=== PATIENT | male | born 1930 | race American Indian/Alaskan Native ===

== ENCOUNTER 2018-08-15 16:20 | Observation (INO) ==
[2018-08-15] MEDS ORDERED: LACTATED RINGERS 1,000 ML IV ONE (16:40)
--- NOTE | 2018-08-15 16:43 | Emergency Department Note ---
Weakness HPI - General Chief complaint: Weakness Stated complaint: Weakness, diarrhea, decreased appetite Time Seen by Provider: 08/15/18 16:37 Source: patient Mode of arrival: wheelchair Limitations: no limitations - History of Present Illness HPI Narrative: This patient describes generalized weakness in both legs with pain in both legs the right greater than the left. He describes a knee injury that he got in the service. He lives in a local hotel by himself and has been falling quite a bit recently. He was brought in by some case work aide from the [place]. He denies any chest pain abdominal pain nausea vomiting. Denies back pain. - Related Data Home Medications Medication Instructions Recorded Confirmed Aspirin [Jessica Chewable Aspirin] 81 mg PO DAILY 08/15/18 08/15/18 Aspirin/Acetaminophen/Caffeine 1 - 2 tablet PO BIDP PRN 08/15/18 08/15/18 [Excedrin Migraine Caplet] Atorvastatin [Lipitor] 20 mg PO HS 08/15/18 08/15/18 Bumetanide [Bumex] 1 mg PO BID 08/15/18 08/15/18 Chlorpheniramine Maleate [Allergy] 4 mg PO DAILY 08/15/18 08/15/18 Ferrous Sulfate [Iron] 325 mg PO DAILY 08/15/18 08/15/18 Lisinopril [Zestril] 20 mg PO DAILY 08/15/18 08/15/18 Metoprolol Tartrate [Lopressor] 12.5 mg PO BID 08/15/18 08/15/18 Omeprazole [PriLOSEC] 20 mg PO DAILY 08/15/18 08/15/18 Spironolactone [Aldactone] 12.5 mg PO DAILY 08/15/18 08/15/18 Warfarin Sodium [Jantoven] 3 mg PO DAILY 08/15/18 08/15/18 metFORMIN HCL [Metformin HCl] 500 mg PO BID 08/15/18 08/15/18 Allergies Allergy/AdvReac Type Severity Reaction Status Date / Time hydrocortisone Allergy Unknown Unknown Verified 08/15/18 16:22 [From Cortizone-10] Review of Systems All systems ED: reviewed and negative except as stated. Past Medical History - Past Medical History Medical history: Reports: asthma, atrial fibrillation, CVA, DM, hypertension, migraine, other (DVT) - Social History smoking status: Former smoker Physical Exam Limitations: no limitations General appearance: alert Head: atraumatic Eye: Present: normal appearance ENT: normal exam Neck: Present: normal inspection Chest: Present: normal inspection Respiratory: Present: normal lung sounds bilaterally Cardiovascular: Present: regular rate, normal rhythm, normal heart sounds Abdominal: Present: soft. Absent: distention, tenderness Back: Absent: straight leg raise (R), straight leg raise (L) Neurological: Present: alert Motor strength - LUE: 5/5 Motor strength - RUE: 5/5 Motor strength - LLE: 5/5 Motor strength - RLE: 5/5 Psychiatric: Present: normal affect Skin: Present: warm, dry, intact Course Vital Signs Temperature 98.0 F 08/15/18 16:22 Pulse Rate 91 H 08/15/18 16:22 Respiratory Rate 16 08/15/18 16:22 Blood Pressure 158/100 08/15/18 16:22 Pulse Oximetry (%) 100 08/15/18 16:22 Temperature 98.0 F 08/15/18 16:22 Pulse Rate 93 H 08/15/18 19:58 Respiratory Rate 27 H 08/15/18 19:58 Blood Pressure 140/80 08/15/18 19:46 Pulse Oximetry (%) 94 08/15/18 19:58 Weakness - MDM Narrative Medical decision making narrative: Patient's INR was 6.2. His EKG showed atrial fibrillation with a controlled rate. Head CT showed a lot of atrophy. Chest x-ray showed heart failure and his BNP was 3000. This patient will be admitted to the hospital for multiple falls weakness heart failure and eventual placement in an assisted living center. - Lab Data Lab results reviewed: Yes I reviewed the patient's lab results. Result diagrams: 08/15/18 16:28 08/15/18 16:28 Lab Results 08/15/18 08/15/18 08/15/18 Range/Units 16:10 16:10 16:28 WBC 8.6 (4.5-11.0) K/mcL RBC 3.52 L (4.50-5.90) M/mcL Hgb 11.0 L (13.5-16.5) g/dL Hct 33.4 L (41.0-55.0) % MCV 95.1 (80.0-100.0) fL MCH 31.3 (26.0-34.0) pg MCHC 32.9 (31.0-36.0) g/dL RDW 15.8 H (11.5-14.5) % Plt Count 235 (140-440) K/mcL MPV 8.6 (7.4-10.4) fL Gran % 71.0 (38.0-78.0) % Lymph % (Auto) 15.9 (15.5-49.0) % [place] % (Auto) 8.5 (1.0-12.0) % Eos % (Auto) 3.3 (0.0-7.0) % Baso % (Auto) 1.3 (0.0-2.0) % Gran # 6.1 (1.8-8.0) K/mcL Lymph # (Auto) 1.4 L (1.5-4.8) K/mcL [place] # (Auto) 0.7 (0.1-0.9) K/mcL Eos # (Auto) 0.3 (0.0-0.7) K/mcL Baso # (Auto) 0.1 (0.0-0.3) K/mcL PT 55.9 H (11.9-14.5) sec INR 6.2 H* (0.9-1.1) Sodium (133-145) mmol/L Potassium (3.3-5.1) mmol/L Chloride (96-108) mmol/L Carbon Dioxide (22-30) mmol/L Anion Gap (8-16) BUN (8-23) mg/dl Creatinine (0.7-1.2) mg/dl GFR Calculation Glucose (70-105) mg/dL Calcium (8.6-10.4) mg/dl Total Bilirubin (0.0-1.0) mg/dL AST (0-37) U/l ALT (0-40) U/l Alkaline Phosphatase (39-117) U/L Troponin T (0-0.03) ng/ml NT-Pro-B Natriuret Pep 6673.0 H (0-450) pg/ml Total Protein (5.9-8.4) gm/dL Albumin (3.2-5.2) gm/dL Globulin (2.2-3.7) gm/dL Albumin/Globulin Ratio (1.0-2.3) Urine Color Urine Appearance Urine pH (5.0-9.0) Ur Specific [place] (1.000-1.035) Urine Protein (NEG) mg/dL Urine Glucose (UA) (NEG) mg/dL Urine Ketones (NEG) mg/dL Urine Occult Blood (<0.03) mg/dL Urine Nitrate (NEG) Urine Bilirubin (NEG) mg/dL Urine Urobilinogen (NEG) mg/dL Ur Leukocyte Esterase (NEG) /uL Urine RBC (0-1) /hpf Urine WBC (0-4) /hpf Ur Squamous Epith Cells (0-4) /hpf Urine Bacteria (0) /hpf Hyaline Casts (0-2) /lpf Urine Mucus (0) /hpf Ur Culture Indicated? 08/15/18 08/15/18 08/15/18 Range/Units 16:28 16:40 16:42 WBC (4.5-11.0) K/mcL RBC (4.50-5.90) M/mcL Hgb (13.5-16.5) g/dL Hct (41.0-55.0) % MCV (80.0-100.0) fL MCH (26.0-34.0) pg MCHC (31.0-36.0) g/dL RDW (11.5-14.5) % Plt Count (140-440) K/mcL MPV (7.4-10.4) fL Gran % (38.0-78.0) % Lymph % (Auto) (15.5-49.0) % [place] % (Auto) (1.0-12.0) % Eos % (Auto) (0.0-7.0) % Baso % (Auto) (0.0-2.0) % Gran # (1.8-8.0) K/mcL Lymph # (Auto) (1.5-4.8) K/mcL [place] # (Auto) (0.1-0.9) K/mcL Eos # (Auto) (0.0-0.7) K/mcL Baso # (Auto) (0.0-0.3) K/mcL PT (11.9-14.5) sec INR (0.9-1.1) Sodium 139 (133-145) mmol/L Potassium 4.6 (3.3-5.1) mmol/L Chloride 102 (96-108) mmol/L Carbon Dioxide 22 (22-30) mmol/L Anion Gap 15.0 (8-16) BUN 14 (8-23) mg/dl Creatinine 1.1 (0.7-1.2) mg/dl GFR Calculation 60 Glucose 83 (70-105) mg/dL Calcium 8.4 L (8.6-10.4) mg/dl Total Bilirubin 0.6 (0.0-1.0) mg/dL AST 22 (0-37) U/l ALT 8 (0-40) U/l Alkaline Phosphatase 138 H (39-117) U/L Troponin T 0.02 (0-0.03) ng/ml NT-Pro-B Natriuret Pep (0-450) pg/ml Total Protein 6.3 (5.9-8.4) gm/dL Albumin 3.6 (3.2-5.2) gm/dL Globulin 2.7 (2.2-3.7) gm/dL Albumin/Globulin Ratio 1.3 (1.0-2.3) Urine Color Yellow Urine Appearance Clear Urine pH 5.0 (5.0-9.0) Ur Specific [place] 1.018 (1.000-1.035) Urine Protein Neg (NEG) mg/dL Urine Glucose (UA) Negative (NEG) mg/dL Urine Ketones Neg (NEG) mg/dL Urine Occult Blood Neg (<0.03) mg/dL Urine Nitrate Neg (NEG) Urine Bilirubin Neg (NEG) mg/dL Urine Urobilinogen Neg (NEG) mg/dL Ur Leukocyte Esterase Neg (NEG) /uL Urine RBC 2 H (0-1) /hpf Urine WBC 1 (0-4) /hpf Ur Squamous Epith Cells < 1 (0-4) /hpf Urine Bacteria 0 (0) /hpf Hyaline Casts 14 H (0-2) /lpf Urine Mucus Few (0) /hpf Ur Culture Indicated? No - Radiology Data Radiology results reviewed: Yes I reviewed the patient's radiology results. Disposition Pt seen by REHABILITATION CLERK/PA only: No Clinical Impression: Congestive heart failure, Atrial fibrillation, Generalized weakness Disposition: Xfer As Outpt/Obs ([facility]) Condition: Good Referrals: Ramiro Astorga MD [Primary Care Provider] - Time of Disposition: 20:04
[2018-08-15 17:19] LABS: Basophils # (Auto) 0.1 K/mcL (0.0-0.3); Basophils % (Auto) 1.3 % (0.0-2.0); Eosinophils # (Auto) 0.3 K/mcL (0.0-0.7); Eosinophils % (Auto) 3.3 % (0.0-7.0); Lymphocytes # (Auto) 1.4 K/mcL (1.5-4.8); Lymphocytes % (Auto) 15.9 % (15.5-49.0); Mean Cell Volume 95.1 fL (80.0-100.0); Mean Corpuscular HGB Conc 32.9 g/dL (31.0-36.0); Mean Corpuscular Hemoglobin 31.3 pg (26.0-34.0); Monocytes # (Auto) 0.7 K/mcL (0.1-0.9); Monocytes % (Auto) 8.5 % (1.0-12.0); Platelet Count 235 K/mcL (140-440); RBC 3.52 M/mcL (4.50-5.90); Red Cell Distribution Width 15.8 % (11.5-14.5)
[2018-08-15 17:26] LABS: Appearance,Urine CLEAR; Bacteria,Urine 0 /hpf (0); Bilirubin,Urine NEG (NEG); Color,Urine YELLOW; Glucose,Urine (UA) NEGATIVE (NEG); Leukocyte Esterase,Urine NEG /uL (NEG); Mucus,Urine FEW /hpf (0); Protein,Urine NEG (NEG); Specific Gravity,Urine 1.018 (1.000-1.035); Urine Blood NEG mg/dL (<0.03); Urine Hyaline Cast 14 /lpf (0-2); Urine RBC 2 /hpf (0-1); Urine Squamous Epithelial Cell < 1 /hpf (0-4); Urine WBC 1 /hpf (0-4); Urobilinogen,Urine NEG (NEG)
[2018-08-15 17:34] LABS: ALT/SGPT 8 U/l (0-40); Albumin 3.6 gm/dL (3.2-5.2); Albumin/Globulin Ratio 1.3 (1.0-2.3); Alkaline Phosphatase 138 U/L (39-117); Blood Urea Nitrogen 14 mg/dl (8-23)
--- NOTE | 2018-08-15 17:42 | XRay Report ---
INDICATION: Weakness TECHNIQUE: PA and lateral upright chest x-ray COMPARISON: Previous chest x-ray dated 06/05/2018 FINDINGS: There is cardiomegaly, unchanged. There are bilateral infiltrates consistent with interstitial pulmonary edema. No focal consolidation. Appearance is consistent with congestive heart failure. Clinical correlation and follow-up radiographs recommended. No significant pleural effusion Harper and mediastinum are negative Overall appearance is similar to previous examination. IMPRESSION: 1. Cardiomegaly and probable interstitial pulmonary edema. 2. Appearance is consistent with congestive heart failure. 3. No definite interval change since 05/27/2019. Findings may be persistent or recurrent Interpreted and Authenticated by: James Rodriguez 08/15/18
--- NOTE | 2018-08-15 19:44 | Cat Scan Report ---
CLINICAL INFORMATION: Head injury. Patient is on Coumadin. COMPARISON: None. TECHNIQUE: Axial noncontrast-enhanced images through the brain. FINDINGS: No acute intracranial hemorrhage. No subdural hematoma. No epidural hematoma. No subarachnoid hemorrhage. No intra-axial hematoma. Severe cerebral atrophy with prominent superficial subarachnoid spaces and enlarged ventricles. There is extensive white matter abnormality. 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 No acute abnormality. No localized mass effect. No midline shift. There is white matter abnormality within the adan consistent with small vessel ischemic change. No brainstem or cerebellar hemorrhage. Basilar cisterns are negative. Middle cerebral artery sign. No calvarial fracture. Temporal bones are negative. No temporal bone fracture. Facial bones are not completely imaged. No nasal bone fracture. Orbits are negative. IMPRESSION: 1. No acute intracranial hemorrhage. 2. Severe cerebral atrophy and white matter abnormality. Left parietal encephalomalacia The exam was performed using radiation dose optimization techniques including, but not limited to, automated exposure control, adjustment of the mA and/or kV according to patient size and use of iterative reconstruction technique. Interpreted and Authenticated by: James Rodriguez 08/15/18
--- NOTE | 2018-08-15 21:09 | Internal Med History&Physical ---
Medical - H&P: HPI Patient information: Note initiated : 08/15/18 at 9:00 pm Service Date, if different from initiated Date: [] Patient: Rl Tobias 87 y/o M admitted on for Weakness, diarrhea, decreased appetite. Chief Complaint: weakness, pain, failure to thrive History of present illness: Mr. Tobias is a 87 year old M type 2 diabetes, hypertension, congestive heart failure, atrial fibrillation was brought to the emergency department by [facility] caseworkers due to the patient's declining function. History is obtained in speaking with the patient as well as with caseworkers. The patient has been living in a motel in [facility]. [facility], about 4 months ago was enrolled in a [place] housing program. They have been attempting to find placement for him. During this time he has had decreased appetite, progressive falls. He became weak to the point, that is caseworkers brought him to the emergency department today. Patient tells me that he is here because of pain, pain in the hips and the back and the legs, especially in his right leg. 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 No shooting pains from the back down into the leg. He's been falling more frequently, and states over the last few years he has lost his balance. 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 He has decreased appetite, he eats without pain or abdominal upset, but does not feel like eating much. Is caseworkers have noted complaints of diarrhea, patient states his stools are watery, is not sure how many stools he has a day. He also describes dark and black stools at times (he is on iron supplementation). He denies any kamilla rectal bleeding. No nausea or vomiting, no hematemesis. In the emergency department, evaluation was notable for an elevated BNP in the 6600 range, some evidence of heart failure on chest radiograph, and a critically elevated INR at 6.2 (he takes warfarin for stroke prophylaxis from A. fib). No GI bleeding as noted above. No hematuria. He does get up frequently to urinate in the night. He states he does have a cough, brings up brownish sputum and occasional blackish but no hemoptysis. He occasionally feels wheezing. He has had no pleuritic chest pains. Patient describes decreased appetite, denies any abdominal pain. He says he has loose stools, also brown stools. It sounds as if he is describing having to use laxatives to overcome constipation, unclear if he is currently using any. He is also complaining of headache, takes Excedrin Migraine for headaches. Complains of rhinorrhea when he is eating and chronic sinus problems. Also occasionally has lower extremity edema. Denies any orthopnea or PND. He is chronically on Bumex, spironolactone, lisinopril and metoprolol. Patient is being hospitalized to manage his critical quite a lot with the in the setting of recurrent falls and high risk for hemorrhage, including intracerebral hemorrhage if he has further falls while living alone. All systems: reviewed and no additional remarkable complaints except as stated Medical - H&P: PMH Medical history: Atrial fibrillation Type 2 diabetes mellitus COPD Hypertension Coronary artery disease History of congestive heart failure CVA in 2011 History of peptic ulcer disease Chronic post-traumatic headache History of mastoiditis on the right, status post surgery Surgical history: History of right mastoid surgery History of knee surgery History of cervical spinal surgery History of lumbar surgery History of cataract surgery Pertinent family history: Patient cannot recall family history Social history: Patient was incarcerated for 10 years, released about 5 months ago. Has been living in short-term living arrangements, most recently a motel in [facility]. He's being followed by [facility] case management, attempting to find permanent placement. He has no family. Patient does not smoke. He drinks 3-4 drinks a day with a mix of white wine and Sprite. Currently [facility] is willing to accept the patient, however payor arrangements need to be made. Medical - H&P: Meds Home Medications Medication Instructions Recorded Confirmed Type Aspirin [Jessica Chewable Aspirin] 81 mg PO DAILY 08/15/18 08/15/18 History Aspirin/Acetaminophen/Caffeine 1 - 2 tablet PO BIDP PRN 08/15/18 08/15/18 History [Excedrin Migraine Caplet] Atorvastatin [Lipitor] 20 mg PO HS 08/15/18 08/15/18 History Bumetanide [Bumex] 1 mg PO BID 08/15/18 08/15/18 History Chlorpheniramine Maleate [Allergy] 4 mg PO DAILY 08/15/18 08/15/18 History Ferrous Sulfate [Iron] 325 mg PO DAILY 08/15/18 08/15/18 History Lisinopril [Zestril] 20 mg PO DAILY 08/15/18 08/15/18 History Metoprolol Tartrate [Lopressor] 12.5 mg PO BID 08/15/18 08/15/18 History Omeprazole [PriLOSEC] 20 mg PO DAILY 08/15/18 08/15/18 History Spironolactone [Aldactone] 12.5 mg PO DAILY 08/15/18 08/15/18 History Warfarin Sodium [Jantoven] 3 mg PO DAILY 08/15/18 08/15/18 History metFORMIN HCL [Metformin HCl] 500 mg PO BID 08/15/18 08/15/18 History Allergies Allergy/AdvReac Type Severity Reaction Status Date / Time hydrocortisone Allergy Unknown Unknown Verified 08/15/18 16:22 [From Cortizone-10] Medical - H&P: Exam - Constitutional Vitals: Temp Pulse Resp BP Pulse Ox 98.0 F 95 H 25 H 151/75 95 08/15/18 16:22 08/15/18 20:52 08/15/18 20:52 08/15/18 20:46 08/15/18 20:52 Exam: GENERAL: Alert, oriented, elderly and frail-appearing. HEENT: Atraumatic. PERRL, pupils 4 mm. Arcus senilis present. Conjunctiva clear, no scleral icterus. Hearing grossly intact. Oropharynx with tacky mucous membranes, no lip or gum lesions, no pharyngeal erythema or exudate. Tongue midline, palate rises symmetrically. NECK: Supple without meningismus, no thyromegaly RESPIRATORY: Coarse breath sounds bilaterally without wheezes, rales or rhonchi. Respiratory effort is unlabored. CARDIOVASCULAR: Irregularly irregular rhythm, normal rate. 3/6 systolic murmur at the apex. Trace peripheral edema. Carotid pulses 2+ without bruits. GI: Abdomen soft, nontender, no guarding or rebound. Bowel sounds are present. No hepatosplenomegaly. LYMPHATIC: No cervical or supraclavicular lymphadenopathy MUSCULOSKELETAL: No joint erythema or swelling, normal range of motion in all extremities. SKIN: Intact, warm, dry. Skin turgor decreased. NEUROLOGIC: Cranial nerves II through XII grossly intact (visual acuity and cross not tested). Muscle mass decreased. Strength 5-/5 and symmetric at horse show manager, biceps, triceps, hip flexors, knee flexors, knee extensors. Sensation intact to light touch bilaterally. Deep tendon reflexes 2+ at the biceps and patella. PSYCHIATRIC: Alert, oriented x3, mood and affect groundless situation, decreased insight. Speech at times becomes wandering and tangential. Medical - H&P: Reslt - Labs CBC & Chem 7: 08/16/18 04:36 08/16/18 04:36 Labs: Short CBC 08/15/18 Range/Units 16:28 WBC 8.6 (4.5-11.0) K/mcL Hgb 11.0 L (13.5-16.5) g/dL Hct 33.4 L (41.0-55.0) % Plt Count 235 (140-440) K/mcL BMP 08/15/18 16:28 Sodium 139 Potassium 4.6 Chloride 102 Carbon Dioxide 22 BUN 14 Creatinine 1.1 Glucose 83 Calcium 8.4 L Cardiac Enzymes 08/15/18 Range/Units 16:40 Troponin T 0.02 (0-0.03) ng/ml Liver Function 08/15/18 Range/Units 16:28 Total Bilirubin 0.6 (0.0-1.0) mg/dL AST 22 (0-37) U/l ALT 8 (0-40) U/l Alkaline Phosphatase 138 H (39-117) U/L Albumin 3.6 (3.2-5.2) gm/dL Urine 08/15/18 Range/Units 16:42 Urine Color Yellow Urine Appearance Clear Urine pH 5.0 (5.0-9.0) Ur Specific [place] 1.018 (1.000-1.035) Urine Protein Neg (NEG) mg/dL Urine Glucose (UA) Negative (NEG) mg/dL - EKG Data -: EKG Reviewed by Myself (Afib, rate 80's, PVC, no acute injury) - Imaging and Cardiology Chest x-ray Status: image reviewed by me Additional comments: IMPRESSION: 1. Cardiomegaly and probable interstitial pulmonary edema. 2. Appearance is consistent with congestive heart failure. 3. No definite interval change since 05/27/2019. Findings may be persistent or recurrent CT scan - head Status: image reviewed by me Additional comments: IMPRESSION: 1. No acute intracranial hemorrhage. 2. Severe cerebral atrophy and white matter abnormality. Left parietal encephalomalacia Medical - H&P: A/P (1) Medication induced coagulopathy Current visit: Yes Status: Acute (2) Congestive heart failure Current visit: Yes Status: Acute (3) Atrial fibrillation Current visit: Yes Status: Acute (4) Generalized weakness Current visit: Yes Status: Acute - Narrative A/P Narrative: 87-year-old male with history of atrial fibrillation, on warfarin for stroke prophylaxis, diabetes, congestive heart failure presenting with increasing falls , found to have critical coagulopathy with INR 6.2. Coagulopathy. Patient is unsure how frequently he gets his pro time checked. Suspect his INR is elevated secondary to poor nutrition, perhaps medication noncompliance. At high risk for significant morbidity or mortality from fall and bleeding episode without hospitalization and management of elevated INR given his overall frail state and frequent falls. Plan: -Hospitalize on observation -Telemetry monitoring with atrial fibrillation -Intravenous vitamin K this evening, follow INR -If acute bleeding, further vitamin K and FFP -Fall risk Frequent falls. Patient looks overall debilitated with decreased muscle mass. His strength is surprisingly good with mild generalized weakness however. He may have poor balance secondary to chronic right leg injury (unclear and the patient became sidetracked and trying to describe how he is injured). Walks with a cane at baseline. Suspect poor appetite, decreased nutritional intake is contributing. Poor eye sight is also contributing to balance issues. Plan: PT, OT evaluations. Fall risk. Up with assistance. Congestive heart failure. Appears compensated at this time. On a regimen of diuretics, anti-reading, anti-aldosterone and beta-blockade. Plan: Continue with home regimen. Atrial fibrillation. Currently rate controlled. On metoprolol at baseline. Plan: Continue metoprolol, code clerk, management of coagulopathy as above. Reports of diarrhea. Patient also described formed stools. Unclear if having diarrhea or secondary to laxatives. Plan: Monitor, if significant diarrhea will send stool studies. Malnutrition, decreased body mass index. Patient has poor appetite and poor oral intake. Plan: Nutrition consult Type 2 diabetes. On metformin at home. Random glucose 130 presentation. Plan: Hold metformin, not anticipated but in case of need for contrast studies. Sliding scale insulin, controlled carbohydrate diet. Check hemoglobin A1c Prophylaxis: None indicated, patient currently over anticoagulated CODE STATUS: Patient would not want resuscitation, his CODE STATUS is DO NOT RESUSCITATE
[2018-08-15] MEDS ORDERED: DEXTROSE 31 GM ORAL.SUSP PO PRN (21:22)
[2018-08-15] MEDS ORDERED: ACETAMINOPHEN 325 MG TABLET PO PRN (21:22)
[2018-08-15] MEDS ORDERED: ATORVASTATIN 20 MG TABLET PO SCH (21:22)
[2018-08-15] MEDS ORDERED: 0.9 % SODIUM CHLORIDE 1,000 ML IV SCH (21:22)
[2018-08-15] MEDS ORDERED: DEXTROSE 50% 50 ML VIAL IV PRN (21:22)
[2018-08-15] MEDS ORDERED: PHYTONADIONE 1 MG in 0.9 % SODIUM CHLORIDE 50 ML IV ONE (21:22)
[2018-08-15] MEDS ORDERED: ONDANSETRON 4 MG/2 ML VIAL IV PRN (21:22)
[2018-08-15] MEDS ORDERED: PHYTONADIONE 10 MG/ML AMPUL ONE (21:48)
[2018-08-15] MEDS: INSULIN LISPRO 1 UNIT/0.01 ML UNIT SQ SCH (22:03)
[2018-08-15] MEDS: 0.9 % SODIUM CHLORIDE 10 ML SYRINGE IV SCH (22:04)
[2018-08-15] MEDS: BUMETANIDE 1 MG TABLET PO SCH (22:18)
[2018-08-15] MEDS: METOPROLOL TARTRATE 25 MG TABLET PO SCH (22:18)
[2018-08-16] MEDS: 0.9 % SODIUM CHLORIDE 10 ML SYRINGE IV SCH ×2 (04:37→15:03)
[2018-08-16 05:56] LABS: Basophils # (Auto) 0 K/mcL (0.0-0.3); Basophils % (Auto) 0.2 % (0.0-2.0); Eosinophils # (Auto) 0.3 K/mcL (0.0-0.7); Eosinophils % (Auto) 3.6 % (0.0-7.0); Granulocytes % (Auto) 69.3 % (38.0-78.0); Lymphocytes # (Auto) 1.3 K/mcL (1.5-4.8); Lymphocytes % (Auto) 16.2 % (15.5-49.0); Mean Cell Volume 94.3 fL (80.0-100.0); Mean Corpuscular HGB Conc 33.2 g/dL (31.0-36.0); Mean Corpuscular Hemoglobin 31.3 pg (26.0-34.0); Monocytes # (Auto) 0.9 K/mcL (0.1-0.9); Monocytes % (Auto) 10.7 % (1.0-12.0); Platelet Count 224 K/mcL (140-440); RBC 3.61 M/mcL (4.50-5.90); Red Cell Distribution Width 15.8 % (11.5-14.5)
[2018-08-16 06:24] LABS: Blood Urea Nitrogen 12 mg/dl (8-23)
[2018-08-16 06:33] LABS: Estimated Average Glucose(eAG) 126 mg/dL
[2018-08-16] MEDS ORDERED: CAFFEINE PO PRN (06:45)
[2018-08-16] MEDS ORDERED: ACETAMINOPHEN PO PRN (06:45)
[2018-08-16] MEDS ORDERED: ASPIRIN PO PRN (06:45)
[2018-08-16] MEDS: INSULIN LISPRO 1 UNIT/0.01 ML UNIT SQ SCH ×2 (07:15→11:12)
[2018-08-16] MEDS ORDERED: OMEPRAZOLE 20 MG CAPSULE PO SCH (07:30)
[2018-08-16] MEDS ORDERED: SPIRONOLACTONE 25 MG TABLET PO SCH (09:00)
[2018-08-16] MEDS ORDERED: LISINOPRIL 20 MG TABLET PO SCH (09:00)
[2018-08-16] MEDS: BUMETANIDE 1 MG TABLET PO SCH (09:34)
[2018-08-16] MEDS: METOPROLOL TARTRATE 25 MG TABLET PO SCH (09:34)
--- NOTE | 2018-08-16 16:02 | Discharge Summary ---
Medical - DS: Prov Patient information: Note initiated : 08/16/18 at 3:54 pm Service Date, if different from initiated Date: [] Patient: lR Tobias 87 y/o M admitted on 08/15/18 for Weakness, Diarrhea, Decreased Appetite/CHF, AFib. Date of admission: 08/15/18 21:10 Discharge date: 08/16/18 Primary care physician: Ramiro Astorga Admitting clinician: Brandee Adkins Consults: 08/15/18 Consult to Physician [CONS] Stat Comment: Consulting Provider: Brandee Adkins Reason For Exam: Physician to Consult Discharging clinician: Brandee Adkins Medical - DS: Meds - Discharge Medications Active and Home Medications: Home Medications Aspirin [Jessica Chewable Aspirin] 81 mg PO DAILY 08/15/18 [History Confirmed 05/25 Last Taken Unknown] Aspirin/Acetaminophen/Caffeine [Excedrin Migraine Caplet] 1 - 2 tablet PO BIDP PRN 08/15/18 [History Confirmed 08/15/18 Last Taken Unknown] Atorvastatin [Lipitor] 20 mg PO HS 08/15/18 [History Confirmed 08/15/18 Last Taken Unknown] Bumetanide [Bumex] 1 mg PO BID 08/15/18 [History Confirmed 08/15/18 Last Taken Unknown] Chlorpheniramine Maleate [Allergy] 4 mg PO DAILY 08/15/18 [History Confirmed 05/25 Last Taken Unknown] Ferrous Sulfate [Iron] 325 mg PO DAILY 08/15/18 [History Confirmed 08/15/18 Last Taken Unknown] Lisinopril [Zestril] 20 mg PO DAILY 08/15/18 [History Confirmed 08/15/18 Last Taken Unknown] Metoprolol Tartrate [Lopressor] 12.5 mg PO BID 08/15/18 [History Confirmed 08/15 Last Taken Unknown] Omeprazole [PriLOSEC] 20 mg PO DAILY 08/15/18 [History Confirmed 08/15/18 Last Taken Unknown] Spironolactone [Aldactone] 12.5 mg PO DAILY 08/15/18 [History Confirmed Last Taken Unknown] Warfarin Sodium [Jantoven] 3 mg PO DAILY 08/15/18 [History Confirmed 08/15/18 Last Taken Unknown] metFORMIN HCL [Metformin HCl] 500 mg PO BID 08/15/18 [History Confirmed Last Taken Unknown] Medical - DS: Hosp Hospital course: Presentation: 08/15-Mr. Tobias is a 87 year old M type 2 diabetes, hypertension, congestive heart failure, atrial fibrillation was brought to the emergency department by [facility] caseworkers due to the patient's declining function. History is obtained in speaking with the patient as well as with caseworkers. The patient has been living in a motel in [facility]. He was released from the [facility] about 5 months ago, about 4 months ago [place] in [place]. They have been attempting to find placement for him. During this time he has had decreased appetite, progressive falls. He became weak to the point, that is caseworkers brought him to the emergency department today. Patient tells me that he is here because of pain, pain in the hips and the back and the legs, especially in his right leg. 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 No shooting pains from the back down into the leg. He's been falling more frequently, and states over the last few years he has lost his balance. 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 He has decreased appetite, he eats without pain or abdominal upset, but does not feel like eating much. Is caseworkers have noted complaints of diarrhea, patient states his stools are watery, is not sure how many stools he has a day. He also describes dark and black stools at times (he is on iron supplementation). He denies any kamilla rectal bleeding. No nausea or vomiting, no hematemesis. In the emergency department, evaluation was notable for an elevated BNP in the 6600 range, some evidence of heart failure on chest radiograph, and a critically elevated INR at 6.2 (he takes warfarin for stroke prophylaxis from A. fib). No GI bleeding as noted above. No hematuria. He does get up frequently to urinate in the night. He states he does have a cough, brings up brownish sputum and occasional blackish but no hemoptysis. He occasionally feels wheezing. He has had no pleuritic chest pains. Patient describes decreased appetite, denies any abdominal pain. He says he has loose stools, also brown stools. It sounds as if he is describing having to use laxatives to overcome constipation, unclear if he is currently using any. He is also complaining of headache, takes Excedrin Migraine for headaches. Complains of rhinorrhea when he is eating and chronic sinus problems. Also occasionally has lower extremity edema. Denies any orthopnea or PND. He is chronically on Bumex, spironolactone, lisinopril and metoprolol. Patient is being hospitalized to manage his critical quite a lot with the in the setting of recurrent falls and high risk for hemorrhage, including intracerebral hemorrhage if he has further falls while living alone. Course: -The following day, the patient's INR had decreased to the therapeutic range at 2.3. -Patient had significant post void residual, 700 mL. He required straight catheter on 3 occasions, subsequently was able to empty his bladder with postvoid residual less than 200 mL, Abbasi catheter was not placed. -He worked to some extent with physical therapy, was able to ambulate safely with a walker. He was extensively evaluated for the need for home oxygen, as he had an observed desaturation, but with exertion did not qualify for oxygen. His appetite was good, he ate well while he was in the hospital. -He was seen by case management/social work. He now has arrangements for a [place] primary care provider, his appointment is on 08/26. In regards to housing, initially, as thought he may be able to qualify for admission to housing facility in [place], however that fell through. -Given his functional status after hydration and evaluation by physical therapy , the patient should be safe to return to his living situation in [place], home health was arranged, prescription for front wheel walker was given. He will continue to work with [place] case management. Problems: -Coagulopathy. Resolved with 1 mg of intravenous vitamin K. INR ordered for next Sunday as ordered with results to Dr. anna Tello, until the patient can establish in the [place]. Meanwhile home health ordered, RN, case management social worker, physical and occupational therapy. -Frequent falls. Patient was able to work with physical therapy to some extent , was stable ambulating with a walker. He will be given a prescription for front wheel walker, home health was arranged including PT. -Congestive heart failure. Compensated at this time. -Atrial fibrillation. Rate controlled, on metoprolol. -Reports of diarrhea. None noted during this hospitalization. -Malnutrition, decreased body mass index. Appetite was actually quite good while he was in the hospital. Nutrition consult on the patient. -Type 2 diabetes, he will continue metformin. Discharge diagnosis: Coagulopathy secondary to warfarin therapy - Time Spent with Patient Total time spent providing and/or coordinating discharge services: Greater than 30 minutes Medical - DS: Exam - Constitutional Vitals: Vital Signs Temp Pulse Pulse Pulse Pulse Resp BP 08/16/18 13:02 98.9 F 16 102/58 08/16/18 12:01 123/92 08/16/18 10:09 08/16/18 08:01 98.5 F 106/58 08/16/18 04:06 98.4 F 71 123/48 08/16/18 04:01 73 88/54 08/16/18 01:18 73 130/92 08/16/18 00:00 98.0 F 85 18 08/15/18 21:25 87 141/85 08/15/18 21:22 98.2 F 95 H 20 08/15/18 21:20 141/80 08/15/18 21:10 98.2 F 86 90 95 H 20 08/15/18 21:01 82 32 H 141/80 08/15/18 20:52 95 H 25 H 08/15/18 20:46 93 H 25 H 151/75 08/15/18 20:31 94 H 33 H 153/79 08/15/18 20:22 90 18 08/15/18 20:16 91 H 23 H 152/72 08/15/18 20:01 92 H 26 H 158/80 08/15/18 19:58 93 H 27 H 08/15/18 19:46 88 36 H 140/80 08/15/18 19:40 88 29 H 156/85 08/15/18 19:20 94 H 23 H 155/84 08/15/18 19:16 99 H 19 08/15/18 19:15 90 21 08/15/18 19:01 91 H 15 148/85 08/15/18 18:42 88 19 08/15/18 18:31 94 H 12 153/79 08/15/18 18:21 90 20 08/15/18 18:16 92 H 27 H 164/85 08/15/18 18:01 94 H 17 154/108 08/15/18 17:59 19 08/15/18 17:46 92 H 28 H 147/81 08/15/18 17:31 91 H 23 H 173/75 08/15/18 17:16 90 24 H 139/81 08/15/18 17:09 90 21 08/15/18 17:02 91 H 24 H 150/85 08/15/18 16:46 79 19 165/75 08/15/18 16:31 83 26 H 155/74 08/15/18 16:25 96 H 22 158/100 08/15/18 16:22 98.0 F 91 H 16 158/100 BP Pulse Ox 08/16/18 13:02 93 08/16/18 12:01 08/16/18 10:09 95 08/16/18 08:01 94 08/16/18 04:06 97 08/16/18 04:01 94 08/16/18 01:18 97 08/16/18 00:00 130/92 92 08/15/18 21:25 92 08/15/18 21:22 141/85 94 08/15/18 21:20 08/15/18 21:10 141/85 94 08/15/18 21:01 95 08/15/18 20:52 95 08/15/18 20:46 93 08/15/18 20:31 90 08/15/18 20:22 95 08/15/18 20:16 94 08/15/18 20:01 95 08/15/18 19:58 94 08/15/18 19:46 93 08/15/18 19:40 94 08/15/18 19:20 95 08/15/18 19:16 97 08/15/18 19:15 97 08/15/18 19:01 08/15/18 18:42 93 08/15/18 18:31 95 08/15/18 18:21 93 08/15/18 18:16 97 08/15/18 18:01 97 08/15/18 17:59 08/15/18 17:46 95 08/15/18 17:31 94 08/15/18 17:16 96 08/15/18 17:09 96 08/15/18 17:02 97 08/15/18 16:46 95 08/15/18 16:31 97 08/15/18 16:25 93 08/15/18 16:22 100 Intake and Output 08/16/18 08/16/18 08/16/18 05:59 13:59 21:59 Intake Total 250.1 / 250.1 Output Total 2029 675 / 675 125 / 125 Balance -1779.9 / -1779.9 -675 / -675 -125 / -125 Intake: IV 50.1 / 50.1 Oral 200 / 200 Output: Urine Catheter Amount 1480 / 1480 325 / 325 Straight 1480 / 1480 325 / 325 Void Amount 550 / 550 350 / 350 125 / 125 Other: Meal Lunch Percent of Meal Consumed 50% Feeding Ability Independent Urine Appearance Clear Clear Straight Clear Clear Urine Color Pale Pale Straight Pale Pale Urine Odor Straight Normal # Voids 8 # Bowel Movements 2 Weight 141 lb 6.4 oz Patient Weight 08/17/18 05:59 Weight 141 lb 6.4 oz Additional comments: General: In no acute distress Chest: Clear, no rales or wheezes Cardiovascular: Irregular, no edema Abdomen: Soft, nontender Neuro: Alert, oriented, generalized weakness but nonfocal. Medical - DS: Data Labs on day of discharge: Labs from last 24 hours 08/16/18 08/16/18 08/16/18 04:36 04:36 04:36 WBC 8.0 RBC 3.61 L Hgb 11.3 L Hct 34.1 L MCV 94.3 MCH 31.3 MCHC 33.2 RDW 15.8 H Plt Count 224 MPV 8.6 Gran % 69.3 Lymph % (Auto) 16.2 [place] % (Auto) 10.7 Eos % (Auto) 3.6 Baso % (Auto) 0.2 Gran # 5.5 Lymph # (Auto) 1.3 L [place] # (Auto) 0.9 Eos # (Auto) 0.3 Baso # (Auto) 0 PT 25.3 H INR 2.3 H Sodium 139 Potassium 4.4 Chloride 101 Carbon Dioxide 27 Anion Gap 11.0 BUN 12 Creatinine 1.0 GFR Calculation 68 Glucose 90 Hemoglobin A1c 6.0 Estim Average Glucose 126 Calcium 8.6 Total Bilirubin AST ALT Alkaline Phosphatase Troponin T NT-Pro-B Natriuret Pep Total Protein Albumin Globulin Albumin/Globulin Ratio Urine Color Urine Appearance Urine pH Ur Specific Branch Urine Protein Urine Glucose (UA) Urine Ketones Urine Occult Blood Urine Nitrate Urine Bilirubin Urine Urobilinogen Ur Leukocyte Esterase Urine RBC Urine WBC Ur Squamous Epith Cells Urine Bacteria Hyaline Casts Urine Mucus Ur Culture Indicated? 08/15/18 08/15/18 08/15/18 16:42 16:40 16:28 WBC RBC Hgb Hct MCV MCH MCHC RDW Plt Count MPV Gran % Lymph % (Auto) Hernando % (Auto) Eos % (Auto) Baso % (Auto) Gran # Lymph # (Auto) Hernando # (Auto) Eos # (Auto) Baso # (Auto) PT INR Sodium 139 Potassium 4.6 Chloride 102 Carbon Dioxide 22 Anion Gap 15.0 BUN 14 Creatinine 1.1 GFR Calculation 60 Glucose 83 Hemoglobin A1c Estim Average Glucose Calcium 8.4 L Total Bilirubin 0.6 AST 22 ALT 8 Alkaline Phosphatase 138 H Troponin T 0.02 NT-Pro-B Natriuret Pep Total Protein 6.3 Albumin 3.6 Globulin 2.7 Albumin/Globulin Ratio 1.3 Urine Color Yellow Urine Appearance Clear Urine pH 5.0 Ur Specific Branch 1.018 Urine Protein Neg Urine Glucose (UA) Negative Urine Ketones Neg Urine Occult Blood Neg Urine Nitrate Neg Urine Bilirubin Neg Urine Urobilinogen Neg Ur Leukocyte Esterase Neg Urine RBC 2 H Urine WBC 1 Ur Squamous Epith Cells < 1 Urine Bacteria 0 Hyaline Casts 14 H Urine Mucus Few Ur Culture Indicated? No 08/15/18 08/15/18 08/15/18 16:28 16:10 16:10 WBC 8.6 RBC 3.52 L Hgb 11.0 L Hct 33.4 L MCV 95.1 MCH 31.3 MCHC 32.9 RDW 15.8 H Plt Count 235 MPV 8.6 Gran % 71.0 Lymph % (Auto) 15.9 Hernando % (Auto) 8.5 Eos % (Auto) 3.3 Baso % (Auto) 1.3 Gran # 6.1 Lymph # (Auto) 1.4 L [place]ando # (Auto) 0.7 Eos # (Auto) 0.3 Baso # (Auto) 0.1 PT 55.9 H INR 6.2 H* Sodium Potassium Chloride Carbon Dioxide Anion Gap BUN Creatinine GFR Calculation Glucose Hemoglobin A1c Estim Average Glucose Calcium Total Bilirubin AST ALT Alkaline Phosphatase Troponin T NT-Pro-B Natriuret Pep 6673.0 H Total Protein Albumin Globulin Albumin/Globulin Ratio Urine Color Urine Appearance Urine pH Ur Specific Branch Urine Protein Urine Glucose (UA) Urine Ketones Urine Occult Blood Urine Nitrate Urine Bilirubin Urine Urobilinogen Ur Leukocyte Esterase Urine RBC Urine WBC Ur Squamous Epith Cells Urine Bacteria Hyaline Casts Urine Mucus Ur Culture Indicated? - Impressions Chest x-ray IMPRESSION: 1. Cardiomegaly and probable interstitial pulmonary edema. 2. Appearance is consistent with congestive heart failure. 3. No definite interval change since 05/27/2019. Findings may be persistent or recurrent CT scan - head IMPRESSION: 1. No acute intracranial hemorrhage. 2. Severe cerebral atrophy and white matter abnormality. Left parietal encephalomalacia Medical - DS: A/P - Patient/Caregiver Discharge Instructions Activity: ambulate only with your walker, increase activity as tolerated Diet: Regular Diet Other Amb Orders: Walker Location: None Selected Prothrombin Time INR Time Frame: 08/19/18, Location: None Selected Prothrombin Time INR Time Frame: 08/22/18, Location: None Selected - Problem Maintenance (1) Medication induced coagulopathy Status: Resolved (2) Congestive heart failure Status: Chronic Qualifiers: Heart failure type: unspecified Heart failure chronicity: chronic Qualified Code(s): I50.9 - Heart failure, unspecified (3) Atrial fibrillation Status: Chronic Qualifiers: Atrial fibrillation type: chronic Qualified Code(s): I48.2 - Chronic atrial fibrillation (4) Generalized weakness Status: Chronic - Follow up Plan Follow up with: Jordan Thomas ARNP [Adv Reg Nurse Practitioner] - 08/26/18 12:00 pm Disposition: Home Health Service Prognosis: Fair Rehab Potential: Fair I certify that the patient requires SNF services: No Overall status at discharge: patient is back to baseline Medical - DS: Qual - VTE Deep Vein Thrombosis/Pulmonary Embolism Present on Admission: No
[2018-08-17] MEDS ORDERED: PNEUMOCOCCAL 23-VAL P-SAC VAC 0.5 ML VIAL IM ONE (10:00)
== END 2018-08-16 17:20 | disposition home health service (06) ==
LOC: ICU 16:20 → ED 16:20 → ICU 21:10
PROVIDERS: ADMIT Internal Medicine; ATTEND Internal Medicine
CPT/HCPCS: 97161